=== PATIENT | female | born 1960 | race Caucasian/White ===

== ENCOUNTER 2019-11-28 11:11 | Emergency (ER) | payer OTHER ==
[~2019-11-28] VITALS: Ht 154.9 cm; Wt 65.8 kg
[2019-11-28] MEDS ORDERED: LEVOTHYROXINE25 MCG (11:22)
[2019-11-28] MEDS ORDERED: FORTAMET500 MG (11:23)
[2019-11-28] MEDS ORDERED: MEDROLPACK PO (13:52)
== END 2019-11-28 14:04 | disposition home or self-care (01) ==
LOC: ER 11:11
DX: R06.02 Shortness of breath (principal); Z03.818 Encounter for observation for suspected exposure to other biological agents ruled out

== ENCOUNTER 2022-08-27 12:17 | Emergency (ER) | payer OTHER ==
[~2022-08-27] VITALS: Ht 160 cm; Wt 73.0 kg
[~2022-08-27 12:17] MED LIST: FORTAMET500 MG; LEVOTHYROXINE25 MCG; MEDROLPACK PO
== END 2022-08-27 17:14 | disposition home or self-care (01) ==
LOC: ER 12:17
DX: J45.909 Unspecified asthma, uncomplicated (principal); Z20.822 Contact with and (suspected) exposure to COVID-19; E03.9 Hypothyroidism, unspecified